=== PATIENT | female | born 2000 ===

== ENCOUNTER 2022-05-22 21:00 | Emergency (ER) | payer OTHER ==
[2022-05-22 21:33] LABS: BILIRUBIN,URINE NEGATIVE (NEGATIVE); CLARITY,URINE CLEAR; COLOR,URINE YELLOW; GLUCOSE, URINE (UA) NEGATIVE (NEGATIVE); KETONES,URINE NEGATIVE (NEGATIVE); LEUKOCYTE ESTERASE ,URINE NEGATIVE (NEGATIVE); NITRITE,URINE NEGATIVE (NEGATIVE); PROTEIN,URINE NEGATIVE (NEGATIVE)
[2022-05-22 21:42] LABS: BASOPHILS % (AUTO) 0 % (0-10); EOSINOPHILS # (AUTO) 0.2 10^3/uL (0.0-0.3); EOSINOPHILS % (AUTO) 2 % (0-10); HEMATOCRIT 40 % (35-52); HEMOGLOBIN 13.2 g/dL (11.5-16.0); LYMPHOCYTES # (AUTO) 2.6 10^3/uL (1.0-4.0); LYMPHOCYTES % (AUTO) 37 % (12-44); MEAN CORPUSCULAR HEMOGLOBIN 29 pg (25-34); MEAN CORPUSCULAR HGB CONC 33 g/dL (32-36); MEAN CORPUSCULAR VOLUME 86 fL (80-99); MEAN PLATELET VOLUME 10.7 fL (9.0-12.2); MONOCYTES # (AUTO) 0.4 10^3/uL (0.0-1.0); MONOCYTES % (AUTO) 6 % (0-12); NEUTROPHILS # (AUTO) 3.7 10^3/uL (1.8-7.8); NEUTROPHILS % (AUTO) 54 % (42-75); PLATELET COUNT 220 10^3/uL (130-400); WHITE BLOOD COUNT 6.8 10^3/uL (4.3-11.0)
[2022-05-22 21:43] LABS: WBC,URINE 0-2 /HPF
[2022-05-22 21:44] LABS: BACTERIA,URINE LARGE /HPF
[2022-05-22 21:45] LABS: ALBUMIN 4.5 GM/DL (3.2-4.5)
[2022-05-22] MEDS ORDERED: NS IV 1000 ML 1,000 ML IV SCH (21:45)
[2022-05-22] MEDS ORDERED: PANTOPRAZOLE 40 MG (PROTONIX) VIAL IV ONE (21:45)
[2022-05-22] MEDS ORDERED: ONDANSETRON 4 MG/2 ML (SDV) Z0FRAN IVP ONE (21:45)
[2022-05-22 21:46] LABS: POTASSIUM 3.4 MMOL/L (3.6-5.0)
[2022-05-22 21:47] LABS: CALCIUM 9.3 MG/DL (8.5-10.1)
[2022-05-22 21:48] LABS: TOTAL PROTEIN 7.8 GM/DL (6.4-8.2)
[2022-05-22 21:50] LABS: BILIRUBIN,TOTAL 0.3 MG/DL (0.1-1.0)
[2022-05-22 21:51] LABS: CREATININE SERUM 0.71 MG/DL (0.60-1.30)
[2022-05-22] MEDS ORDERED: NS 100 ML (IVPB) BAG IV ONE (22:15)
[2022-05-22] MEDS ORDERED: IOHEXOL 350 MG/ML 100 ML (OMNIPAQUE 350) VIAL IV ONE (22:15)
[2022-05-22] MEDS ORDERED: CATHETER FLUSH 10 ML SYR IV PRN (22:15)
--- NOTE | 2022-05-22 23:06 | ED Abdominal Pain ---
General Chief Complaint: Abdominal/GI Problems Stated Complaint: UPPER ABD PAIN Nursing Triage Note: PT ARRIVAL TO ER VIA PRIVATE VEHICLE FROM HOME WITH COMPLAINT OF ABDOMINAL PAIN X2 HOURS. PT HAS VOMITED ONCE. PAIN IS IN RUQ. PT DENIES ANY SURGERY HISTORY. PAIN IS A PRESSURE LIKE PAIN AT A 9/10. 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 Source of Information: Patient Exam Limitations: Language Barrier History of Present Illness Date Seen by Provider: May 22, 2022 Time Seen by Provider: 21:17 Initial Comments 21-year-old female presents with mid upper abdominal pain that radiates to the RUQ starting 2 hours prior to arrival, after eating. States the pain feels like a band pulling on her. Reports 1 episode of vomiting. Denies fever/chills, chest pain, shortness of air, diarrhea, constipation, dysuria, vaginal bleeding/discharge. States she had a normal bowel movement today. She denies any past medical/surgical history. Does not take any medications regularly. Timing/Duration: 1-3 Hours Allergies and Home Medications Allergies Coded Allergies: No Known Drug Allergies (Unverified , 05/22/22) Patient Home Medication List Home Medication List Reviewed: Yes Dicyclomine HCl (Dicyclomine HCl) 20 Mg Tablet, 20 MG PO ACHS Prescribed by: Milagros Seo on 05/22/22 2339 Ketorolac Tromethamine (Ketorolac Tromethamine) 10 Mg Tablet, 10 MG PO QID Prescribed by: Milagros Seo on 05/22/22 2339 Ondansetron (Ondansetron Odt) 4 Mg Tab.rapdis, 4 MG SL Q4H PRN for NAUSEA/VOMITING Prescribed by: Milagros Seo on 05/22/22 2339 Review of Systems Review of Systems Constitutional: see HPI Past Jjqahbz-Ysoiys-Tjbjwr Hx Patient Social History Tobacco Use?: No Use of E-Cig and/or Vaping dev: No Substance use?: No Alcohol Use?: No Pt feels they are or have been: No Immunizations Up To Date Influenza Vaccine Up-to-Date: No; Not Current Second COVID19 Vaccination Mansoor: UNKNOWN COVID19 Vaccine Manager Systems: MODERNA Physical Exam Vital Signs Vital Signs - First Documented 05/22/22 21:12 Temp 36.9 Pulse 81 Resp 16 B/P (MAP) 117/54 (75) Pulse Ox 99 O2 Delivery Room Air Capillary Refill : Less Than 3 Seconds Height/Weight/BMI Height: '" Weight: lbs. oz. kg; BMI Method: General Appearance: WD/WN, mild distress Neck: supple, normal inspection Respiratory: lungs clear, normal breath sounds, no respiratory distress, no accessory muscle use Cardiovascular: regular rate, rhythm, no edema, no gallop, no JVD, no murmur Gastrointestinal: normal bowel sounds, soft, no organomegaly, no pulsatile mass, tenderness (RUQ, Epigastric) Extremities: normal range of motion, normal inspection Neurologic/Psychiatric: alert, normal mood/affect, oriented x 3 Skin: normal color, warm/dry Progress/Results/Core Measures Results/Orders Lab Results Laboratory Tests Test 05/22/22 21:17 05/22/22 21:20 Range/Units White Blood Count 6.8 4.3-11.0 10^3/uL Red Blood Count 4.62 3.80-5.11 10^6/uL Hemoglobin 13.2 11.5-16.0 g/dL Hematocrit 40 35-52 % Mean Corpuscular Volume 86 80-99 fL Mean Corpuscular Hemoglobin 29 25-34 pg Mean Corpuscular Hemoglobin Concent 33 32-36 g/dL Red Cell Distribution Width 12.5 10.0-14.5 % Platelet Count 220 130-400 10^3/uL Mean Platelet Volume 10.7 9.0-12.2 fL Immature Granulocyte % (Auto) 0 % Neutrophils (%) (Auto) 54 42-75 % Lymphocytes (%) (Auto) 37 12-44 % Monocytes (%) (Auto) 6 0-12 % Eosinophils (%) (Auto) 2 0-10 % Basophils (%) (Auto) 0 0-10 % Neutrophils # (Auto) 3.7 1.8-7.8 10^3/uL Lymphocytes # (Auto) 2.6 1.0-4.0 10^3/uL Monocytes # (Auto) 0.4 0.0-1.0 10^3/uL Eosinophils # (Auto) 0.2 0.0-0.3 10^3/uL Basophils # (Auto) 0.0 0.0-0.1 10^3/uL Immature Granulocyte # (Auto) 0.0 0.0-0.1 10^3/uL Sodium Level 141 135-145 MMOL/L Potassium Level 3.4 L 3.6-5.0 MMOL/L Chloride Level 108 H 98-107 MMOL/L Carbon Dioxide Level 22 21-32 MMOL/L Anion Gap 11 5-14 MMOL/L Blood Urea Nitrogen 11 7-18 MG/DL Creatinine 0.71 0.60-1.30 MG/DL Estimat Glomerular Filtration Rate 122 BUN/Creatinine Ratio 15 Glucose Level 89 70-105 MG/DL Calcium Level 9.3 8.5-10.1 MG/DL Corrected Calcium 8.9 8.5-10.1 MG/DL Total Bilirubin 0.3 0.1-1.0 MG/DL Aspartate Amino Transf (AST/SGOT) 18 5-34 U/L Alanine Aminotransferase (ALT/SGPT) 18 0-55 U/L Alkaline Phosphatase 61 40-136 U/L Total Protein 7.8 6.4-8.2 GM/DL Albumin 4.5 3.2-4.5 GM/DL Amylase Level 111 25-125 U/L Lipase 33 8-78 U/L Urine Color YELLOW Urine Clarity CLEAR Urine pH 7.0 5-9 Urine Specific [place] 1.025 H 1.016-1.022 Urine Protein NEGATIVE NEGATIVE Urine Glucose (UA) NEGATIVE NEGATIVE Urine Ketones NEGATIVE NEGATIVE Urine Nitrite NEGATIVE NEGATIVE Urine Bilirubin NEGATIVE NEGATIVE Urine Urobilinogen 0.2 < = 1.0 MG/DL Urine Leukocyte Esterase NEGATIVE NEGATIVE Urine RBC (Auto) 3+ H NEGATIVE Urine RBC 5-10 H /HPF Urine WBC 0-2 /HPF Urine Squamous Epithelial Cells 5-10 /HPF Urine Crystals NONE /LPF Urine Bacteria LARGE H /HPF Urine Casts NONE /LPF Urine Mucus SMALL H /LPF Urine Culture Indicated YES My Orders Orders - MILAGROS SEO APRN Urinalysis (05/22/22 21:17) Ed Iv/Invasive Line Start (05/22/22 21:33) Ns Iv 1000 Ml (Sodium Chloride 0.9%) (05/22/22 21:45) Ondansetron Injection (Zofran Injectio (05/22/22 21:45) Comprehensive Metabolic Panel (05/22/22 21:33) Lipase (05/22/22 21:33) Amylase (05/22/22 21:33) Cbc With Automated Diff (05/22/22 21:33) Ct Abdomen/Pelvis W (05/22/22 21:33) Pantoprazole Injection (Protonix Injecti (05/22/22 21:45) Urine Culture (05/22/22 21:20) Urine Bedside (05/22/22 21:50) Iohexol Injection (Omnipaque 350 Mg/Ml 1 (05/22/22 22:15) Sodium Chloride Flush (Catheter Flush Sy (05/22/22 22:15) Ns (Ivpb) (Sodium Chloride 0.9% Ivpb Bag (05/22/22 22:15) Dicyclomine Injection (Bentyl Injection) (05/22/22 23:30) Ketorolac Injection (Toradol Injection) (05/22/22 23:45) Medications Given in ED Current Medications Medications Dose Ordered Sig/Maegan Route Start Time Stop Time Status Last Admin Dose Admin Dicyclomine HCl 20 mg ONCE ONCE IM 05/22/22 23:30 05/22/22 23:31 DC 05/22/22 23:45 20 MG Ketorolac Tromethamine 15 mg ONCE ONCE IVP 05/22/22 23:45 05/22/22 23:46 DC 05/22/22 23:44 15 MG Vital Signs/I&O 05/22/22 05/22/22 21:12 23:45 Temp 36.9 36.9 Pulse 81 77 Resp 16 16 B/P (MAP) 117/54 (75) 102/66 Pulse Ox 99 100 O2 Delivery Room Air Room Air 05/23/22 00:00 Intake Total 1000 ml Balance 1000 ml Blood Pressure Mean: 75 Progress Progress Note #1: Time: 21:40 Progress Note Patient seen and evaluated, sitting on bed, mild distress. Based on exam and symptoms, differential diagnosis includes but is not limited to GERD, cholecystitis, pancreatitis, gastroenteritis, peptic ulcer disease. Work-up initiated, CBC, CMP, amylase, lipase, CT abdomen pelvis. IV fluids, Zofran, Protonix ordered. Progress Note #2: Time: 22:44 Progress Note Labs reviewed. CBC grossly normal. CMP shows slightly decreased potassium at 3.4, chloride at 108. UA negative for infection, positive for red blood cells and bacteria. Progress Note #3: Time: 23:[address] reviewed. Cholelithiasis, minimal gallbladder wall thickening. Recommend gallbladder ultrasound. Will order outpatient gallbladder ultrasound. Discussed discharge with patient. Will send home with pain medication and nausea medication. Return precautions provided. Departure Impression Primary Impression: Cholelithiases Disposition: 01 HOME, SELF-CARE Condition: Stable Departure-Patient Inst. Decision time for Depature: 23:33 Referrals: NO,LOCAL PHYSICIAN (PCP/Family) Primary Care Physician Patient Instructions: Gallstones (DC) Add. Discharge Instructions: Take medications as prescribed. Take Bentyl prior to eating and at bedtime. Take Toradol as needed for pain with food. Take Zofran as needed for nausea. Return for any fevers, uncontrolled pain, uncontrolled vomiting, or any other new, concerning, or worsening symptoms. Call to schedule your ultrasound. You will follow-up with the surgeon if they are concerned that you need your gallbladder removed. Follow-up with a primary care provider, you may go to the [facility] if you do not have a primary care provider. [place] [address] [place] [address] All discharge instructions reviewed with patient and/or family. Voiced understanding. Scripts Ondansetron (Ondansetron Odt) 4 Mg Tab.rapdis 4 MG SL Q4H PRN for NAUSEA/VOMITING, #14 TAB Prov: MILAGROS SEO APRN 05/22/22 Dicyclomine HCl (Dicyclomine HCl) 20 Mg Tablet 20 MG PO ACHS, #28 TAB Prov: MILAGROS SEO APRN 05/22/22 Ketorolac Tromethamine (Ketorolac Tromethamine) 10 Mg Tablet 10 MG PO QID, #20 TAB Prov: MILAGROS SEO ANIMAL STUNNER 05/22/22 MILAGROS SEO APRN May 22, 2022 23:06
[2022-05-22] MEDS ORDERED: DICYCLOMINE 10 MG/ML (BENTYL) 2 ML AMP IM ONE (23:30)
[2022-05-22] MEDS ORDERED: DICY20TA PO (23:39)
[2022-05-22] MEDS ORDERED: KETO10TA PO (23:39)
[2022-05-22] MEDS ORDERED: ONDA4TAB11 SL (23:39)
[2022-05-22 23:45] VITALS: BP 102/66
[2022-05-22] MEDS ORDERED: KETOROLAC 15 MG/ML VIAL IVP ONE (23:45)
--- NOTE | 2022-05-23 07:02 | Diagnostic Imaging Report ---
PROCEDURE: CT abdomen and pelvis with contrast. TECHNIQUE: Multiple contiguous axial images were obtained through the abdomen and pelvis after administration of intravenous contrast. Auto Exposure Controls were utilized during the CT exam to meet ALARA standards for radiation dose reduction. All CT scans use one or more of the following dose optimizing techniques: automated exposure control, MA and/or KvP adjustment based on patient size and exam type or iterative reconstruction. INDICATION: Right upper quadrant abdominal pain and emesis. There is increased density in the inferior aspect of the gallbladder fundus which may be due to sludge or stones. There is no associated gallbladder wall thickening. No focal hepatic, pancreatic, adrenal gland or splenic abnormalities identified. Kidneys are also unremarkable. Incidental note is made of an approximately 1.1 cm cyst along the posterior capsule of the spleen in the left upper quadrant. There is no evidence of free fluid or organized fluid collection in the abdomen or pelvis. Urinary bladder is largely decompressed but otherwise unremarkable. IMPRESSION: Sludge or stones in the gallbladder lumen. Correlation with symptoms of cholecystitis would be useful. There is no secondary sign of gallbladder inflammation by CT imaging and no other acute abnormality seen in the abdomen or pelvis. Dictated by: Dictated on workstation # [id number]
== END 2022-05-22 23:57 | disposition home or self-care (01) ==
LOC: ER 21:05
DX: K80.20 Calculus of gallbladder without cholecystitis without obstruction (principal); E87.6 Hypokalemia
CPT/HCPCS: 36415; 74177; 80053; 81000; 82150; 83690; 84703; 85025; 87088

== ENCOUNTER 2022-05-24 02:44 | Emergency (ER) | payer OTHER ==
[~2022-05-24] VITALS: Ht 163 cm; Wt 64.0 kg
[~2022-05-24 02:44] MED LIST: DICY20TA PO; KETO10TA PO; ONDA4TAB11 SL
[2022-05-24 03:28] LABS: BASOPHILS % (AUTO) 1 % (0-10); EOSINOPHILS # (AUTO) 0.1 10^3/uL (0.0-0.3); EOSINOPHILS % (AUTO) 2 % (0-10); HEMATOCRIT 36 % (35-52); LYMPHOCYTES # (AUTO) 2.1 10^3/uL (1.0-4.0); LYMPHOCYTES % (AUTO) 36 % (12-44); MEAN CORPUSCULAR HEMOGLOBIN 28 pg (25-34); MEAN CORPUSCULAR HGB CONC 33 g/dL (32-36); MEAN CORPUSCULAR VOLUME 86 fL (80-99); MEAN PLATELET VOLUME 10.6 fL (9.0-12.2); MONOCYTES # (AUTO) 0.4 10^3/uL (0.0-1.0); MONOCYTES % (AUTO) 6 % (0-12); NEUTROPHILS # (AUTO) 3.2 10^3/uL (1.8-7.8); NEUTROPHILS % (AUTO) 55 % (42-75); PLATELET COUNT 189 10^3/uL (130-400); WHITE BLOOD COUNT 5.9 10^3/uL (4.3-11.0)
--- NOTE | 2022-05-24 03:29 | ED Abdominal Pain ---
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) Exam Limitations: Language Barrier History of Present Illness Date Seen by Provider: May 24, 2022 Time Seen by Provider: 03:05 Initial Comments PT ARRIVES VIA POV C/O EPIGASTRIC AND RIGHT UPPER QUADRANT PAIN PAIN BEGAN AROUND 1900 ON 05/22/22 AND HAS BEEN GETTING WORSE SHE WAS SEEN HERE 05/22/22 AND DX WITH GALLBLADDER DISEASE, AND OUTPATIENT ULTRASOUND WAS ORDERED, AND SHE WAS SENT HOME WITH PRESCRIPTIONS FOR DICYCLOMINE, ZOFRAN AND TORADOL AND ADVISED TO FOLLOW UP WITH [facility] PT DID NOT DO ANY OF THOSE THINGS SHE HAS NOT TAKEN ANYTHING FOR HER SYMPTOMS SHE HAD NAUSEA AND VOMITED ON 05/22/22 BUT NONE SINCE, AND NO NAUSEA NOW NO DIARRHEA NO FEVER NO URINARY SYMPTOMS LMP--05/22/22 NO CONTROL. PT IS AB 0--CHILD IS 5 YEARS OLD NO CHRONIC MEDICAL PROBLEMS NO PRIOR SURGERIES PCP: NONE Allergies and Home Medications Allergies Coded Allergies: No Known Drug Allergies (Unverified , 05/22/22) Patient Home Medication List Home Medication List Reviewed: Yes Dicyclomine HCl (Dicyclomine HCl) 20 Mg Tablet, 20 MG PO ACHS Prescribed by: Milagros Seo on 05/22/22 2339 Ketorolac Tromethamine (Ketorolac Tromethamine) 10 Mg Tablet, 10 MG PO QID Prescribed by: Milagros Seo on 05/22/22 2339 Nitrofurantoin Monohyd/M-Cryst (Macrobid 100 mg Capsule) 100 Mg Capsule, 1 TAB PO BID Prescribed by: CARL DEMPSEY on 05/24/22 0445 Ondansetron (Ondansetron Odt) 4 Mg Tab.rapdis, 4 MG SL Q4H PRN for NAUSEA/VOMITING Prescribed by: Milagros Seo on 05/22/22 2339 Review of Systems Review of Systems Constitutional: no symptoms reported Respiratory: No Symptoms Reported Cardiovascular: No Symptoms Reported Gastrointestinal: See HPI, Abdominal Pain; Denies Constipated, Denies Diarrhea Genitourinary: No Symptoms Reported Musculoskeletal: no symptoms reported Skin: no symptoms reported Psychiatric/Neurological: No Symptoms Reported Endocrine: No Symptoms Reported Hematologic/Lymphatic: No Symptoms Reported Past Hrfciga-Srgegv-Ssuhtf Hx Patient Social History Tobacco Use?: No Substance use?: No Alcohol Use?: No Immunizations Up To Date Second COVID19 Vaccination Mansoor: UNKNOWN Past Medical History Surgeries: No Respiratory: No Cardiac: No Neurological: No : No Last Menstrual Period: May 22, 2022 Genitourinary: No Gastrointestinal: Yes (GB DISEASE DX 05/22/22) Gall Bladder Disease Musculoskeletal: No Endocrine: No HEENT: No Cancer: No Psychosocial: No Integumentary: No Blood Disorders: No Physical Exam Vital Signs Vital Signs - First Documented 05/24/22 03:00 Temp 36.8 Pulse 98 Resp 18 B/P (MAP) 127/66 (86) Pulse Ox 100 O2 Delivery Room Air Capillary Refill : Height/Weight/BMI Height: '" Weight: lbs. oz. kg; BMI Method: General Appearance: WD/WN, no apparent distress HEENT: No scleral icterus (R), No scleral icterus (L) Neck: normal inspection Respiratory: normal breath sounds, no respiratory distress, no accessory muscle use Cardiovascular: regular rate, rhythm, no murmur Gastrointestinal: normal bowel sounds, soft, tenderness (EPIGASTRIC AND RUQ TENDERNESS. 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, no motor/sensory deficits, alert, normal mood/affect, oriented x 3 Skin: normal color (PT IS ), warm/dry; No rash; tattoos/piercings Progress/Results/Core Measures Results/Orders Lab Results Laboratory Tests Test 05/24/22 03:20 05/24/22 04:20 Range/Units White Blood Count 5.9 4.3-11.0 10^3/uL Red Blood Count 4.23 3.80-5.11 10^6/uL Hemoglobin 12.0 11.5-16.0 g/dL Hematocrit 36 35-52 % Mean Corpuscular Volume 86 80-99 fL Mean Corpuscular Hemoglobin 28 25-34 pg Mean Corpuscular Hemoglobin Concent 33 32-36 g/dL Red Cell Distribution Width 12.6 10.0-14.5 % Platelet Count 189 130-400 10^3/uL Mean Platelet Volume 10.6 9.0-12.2 fL Immature Granulocyte % (Auto) 0 % Neutrophils (%) (Auto) 55 42-75 % Lymphocytes (%) (Auto) 36 12-44 % Monocytes (%) (Auto) 6 0-12 % Eosinophils (%) (Auto) 2 0-10 % Basophils (%) (Auto) 1 0-10 % Neutrophils # (Auto) 3.2 1.8-7.8 10^3/uL Lymphocytes # (Auto) 2.1 1.0-4.0 10^3/uL Monocytes # (Auto) 0.4 0.0-1.0 10^3/uL Eosinophils # (Auto) 0.1 0.0-0.3 10^3/uL Basophils # (Auto) 0.0 0.0-0.1 10^3/uL Immature Granulocyte # (Auto) 0.0 0.0-0.1 10^3/uL Sodium Level 142 135-145 MMOL/L Potassium Level 3.4 L 3.6-5.0 MMOL/L Chloride Level 110 H 98-107 MMOL/L Carbon Dioxide Level 22 21-32 MMOL/L Anion Gap 10 5-14 MMOL/L Blood Urea Nitrogen 11 7-18 MG/DL Creatinine 0.76 0.60-1.30 MG/DL Estimat Glomerular Filtration Rate 113 BUN/Creatinine Ratio 14 Glucose Level 89 70-105 MG/DL Calcium Level 8.5 8.5-10.1 MG/DL Corrected Calcium 8.7 8.5-10.1 MG/DL Total Bilirubin 0.3 0.1-1.0 MG/DL Aspartate Amino Transf (AST/SGOT) 15 5-34 U/L Alanine Aminotransferase (ALT/SGPT) 16 0-55 U/L Alkaline Phosphatase 48 40-136 U/L Total Protein 6.5 6.4-8.2 GM/DL Albumin 3.8 3.2-4.5 GM/DL Amylase Level 83 25-125 U/L Lipase 18 8-78 U/L Serum Test, Qualitative NEGATIVE NEGATIVE Urine Color YELLOW Urine Clarity SL CLOUDY Urine pH 6.0 5-9 Urine Specific [place] >=1.030 1.016-1.022 Urine Protein NEGATIVE NEGATIVE Urine Glucose (UA) NEGATIVE NEGATIVE Urine Ketones NEGATIVE NEGATIVE Urine Nitrite NEGATIVE NEGATIVE Urine Bilirubin NEGATIVE NEGATIVE Urine Urobilinogen 0.2 < = 1.0 MG/DL Urine Leukocyte Esterase TRACE H NEGATIVE Urine RBC (Auto) 3+ H NEGATIVE Urine RBC 25-50 H /HPF Urine WBC 5-10 H /HPF Urine Squamous Epithelial Cells 0-2 /HPF Urine Crystals NONE /LPF Urine Bacteria FEW H /HPF Urine Casts NONE /LPF Urine Mucus SMALL H /LPF Urine Culture Indicated YES My Orders Orders - CARL DEMPSEY DO Ed Iv/Invasive Line Start (05/24/22 03:05) Amylase (05/24/22 03:05) Cbc With Automated Diff (05/24/22 03:05) Comprehensive Metabolic Panel (05/24/22 03:05) Hcg,Qualitative Serum (05/24/22 03:05) Lipase (05/24/22 03:05) Ua Culture If Indicated (05/24/22 03:05) Ketorolac Injection (Toradol Injection) (05/24/22 04:00) Pantoprazole Injection (Protonix Injecti (05/24/22 04:00) Dicyclomine Injection (Bentyl Injection) (05/24/22 04:00) Urine Culture (05/24/22 04:20) Medications Given in ED Current Medications Medications Dose Ordered Sig/Maegan Route Start Time Stop Time Status Last Admin Dose Admin Dicyclomine HCl 20 mg ONCE ONCE IM 05/24/22 04:00 05/24/22 04:01 DC 05/24/22 04:14 20 MG Ketorolac Tromethamine 30 mg ONCE ONCE IVP 05/24/22 04:00 05/24/22 04:01 DC 05/24/22 04:14 30 MG Pantoprazole 40 mg ONCE ONCE IV 05/24/22 04:00 05/24/22 04:01 DC 05/24/22 04:13 40 MG Vital Signs/I&O 05/24/22 03:00 Temp 36.8 Pulse 98 Resp 18 B/P (MAP) 127/66 (86) Pulse Ox 100 O2 Delivery Room Air Progress Progress Note : Progress Note GIVEN: -IV FLUIDS -TORADOL -DICYCLOMINE -PROTONIX UNEVENTFUL ER STAY SYMPTOMS IMPROVED AT DISMISSAL REVIEWED PREVIOUS ER RECORD--PT'S ONLY VISIT HERE. ALL CONVERSATIONS WERE THROUGH VIDEO-SEGREGATOR REVIEWED ALL TEST RESULTS, ANTICIPATED COURSE, IMPORTANCE OF FILLING PRESCRIPTIONS FOR MEDICATIONS, DIET, NEED FOR OUTPATIENT ULTRASOUND, NEED FOR FOLLOW UP WITH BOTH DR. HAGER AND [facility]. Departure Impression Primary Impression: Gallbladder disease Additional Impressions: UTI (urinary tract infection) Cholelithiases Disposition: HOME, SELF-CARE Condition: Improved Departure-Patient Inst. Decision time for Depature: 04:40 Referrals: DAYNE HAGER,LOCAL PHYSICIAN (PCP) Primary Care Physician [facility] Patient Instructions: Gallstones ED, Gallbladder Diet, Urinary Tract Infection, Adult ED Add. Discharge Instructions: CLEAR LIQUIDS--WATER, BROTH, JELLO, GATORADE WHEN YOUR PAIN IS BETTER, ADD BRATS DIET TO CLEAR LIQUIDS--BANANAS, RICE, APPLESAUCE, TOAST, SALTINES CALL OUTPATIENT SCHEDULING TODAY TO SCHEDULE ABDOMINAL ULTRASOUND TO FURTHER EVALUATE YOUR GALLBLADDER GET YOUR PRESCRIPTIONS FILLED AT THE PHARMACY AND TAKE INSTRUCTED CALL TODAY TO SCHEDULE AN APPOINTMENT WITH DR. HAGER, SURGEON CALL TODAY TO SCHEDULE AN APPOINTMENT WITH [facility] TO ESTABLISH CARE AND FOR FOLLOW UP OF THIS PROBLEM AND URINARY TRACT INFECTION. Scripts Nitrofurantoin Monohyd/M-Cryst (Macrobid 100 mg Capsule) 100 Mg Capsule 1 TAB PO BID, #20 CAP Prov: CARL DEMPSEY DO 05/24/22 CARL DEMPSEY DO May 24, 2022 03:29
[2022-05-24 03:39] LABS: ALBUMIN 3.8 GM/DL (3.2-4.5); POTASSIUM 3.4 MMOL/L (3.6-5.0)
[2022-05-24 03:40] LABS: CALCIUM 8.5 MG/DL (8.5-10.1)
[2022-05-24 03:41] LABS: TOTAL PROTEIN 6.5 GM/DL (6.4-8.2)
[2022-05-24 03:43] LABS: BILIRUBIN,TOTAL 0.3 MG/DL (0.1-1.0)
[2022-05-24 03:45] LABS: CREATININE SERUM 0.76 MG/DL (0.60-1.30)
[2022-05-24] MEDS ORDERED: PANTOPRAZOLE 40 MG (PROTONIX) VIAL IV ONE (04:00)
[2022-05-24] MEDS ORDERED: KETOROLAC 30 MG/ML VIAL IVP ONE (04:00)
[2022-05-24] MEDS ORDERED: DICYCLOMINE 10 MG/ML (BENTYL) 2 ML AMP IM ONE (04:00)
[2022-05-24 04:29] LABS: BILIRUBIN,URINE NEGATIVE (NEGATIVE); CLARITY,URINE SL CLOUDY; COLOR,URINE YELLOW; GLUCOSE, URINE (UA) NEGATIVE (NEGATIVE); KETONES,URINE NEGATIVE (NEGATIVE); LEUKOCYTE ESTERASE ,URINE TRACE (NEGATIVE); NITRITE,URINE NEGATIVE (NEGATIVE); PROTEIN,URINE NEGATIVE (NEGATIVE)
[2022-05-24 04:38] LABS: BACTERIA,URINE FEW /HPF; RBC,URINE 25-50 /HPF; SQUAMOUS EPITHELIAL CELL,UR 0-2 /HPF
[2022-05-24] MEDS ORDERED: NITR-65 PO (04:45)
[2022-05-24 05:05] VITALS: BP 115/74
== END 2022-05-24 05:05 | disposition home or self-care (01) ==
LOC: EDUNIT# 02:44 → ER 02:46
DX: K80.20 Calculus of gallbladder without cholecystitis without obstruction (principal); N39.0 Urinary tract infection, site not specified
CPT/HCPCS: 36415; 80053; 81000; 82150; 83690; 84703; 85025; 87088; 99284

== ENCOUNTER 2022-05-24 22:43 | Emergency (ER) | payer OTHER ==
[~2022-05-24] VITALS: Ht 163 cm; Wt 64.0 kg
[~2022-05-24 22:43] MED LIST changes: +NITR-65 PO
--- NOTE | 2022-05-25 02:13 | ED Abdominal Pain ---
General Chief Complaint: Abdominal/GI Problems Stated Complaint: ABDOMINAL PAIN Nursing Triage Note: PT TO ED FOR C/O ABD PAIN. REPORTS HAS AN APPT W/ A SURGEON NEXT MONDAY. REPORTS HAS BEEN AVOIDING CERTAIN FOODS BUT DENIES IMPROVEMENT OF PAIN. REPORTS NAUSEA, DENIES V/D AT THIS TIME Source of Information: Patient, Photography Coordinator, Old Records Exam Limitations: Language Barrier History of Present Illness Date Seen by Provider: May 24, 2022 Time Seen by Provider: 22:52 Initial Comments This 21-year-old young lady presents to the emergency room for the third time with complaints of right upper quadrant pain and vomiting. She has been worked up twice in the last few days and was found to have cholelithiasis on CT scan. She was also diagnosed with urinary tract infection. She has not filled any of the medications prescribed. She did schedule an outpatient ultrasound but it is scheduled for a week from now. She complains of persistent nausea and pain. Pain is worse with eating. She has not had anything to eat or drink since 2099. She is presently nauseated as well as in pain. She states her pain is worse now than it was during the prior 2 visits. Her last visit was just early this morning. She has not no local primary care provider. She does not speak any Vietnamese. Allergies and Home Medications Allergies Coded Allergies: No Known Drug Allergies (Unverified , 05/22/22) Patient Home Medication List Home Medication List Reviewed: Yes Dicyclomine HCl (Dicyclomine HCl) 20 Mg Tablet, 20 MG PO ACHS Prescribed by: Milagros Seo on 05/22/22 152 Ketorolac Tromethamine (Ketorolac Tromethamine) 10 Mg Tablet, 10 MG PO QID Prescribed by: Milagros Seo on 05/22/22 892 Nitrofurantoin Monohyd/M-Cryst (Macrobid 100 mg Capsule) 100 Mg Capsule, 1 TAB PO BID Prescribed by: CARL DEMPSEY on 05/24/22 2685 Ondansetron (Ondansetron Odt) 4 Mg Tab.rapdis, 4 MG SL Q4H PRN for NAUSEA/VOMITING Prescribed by: Milagros Seo on 05/22/22 229 Review of Systems Review of Systems Constitutional: no symptoms reported EENTM: No Symptoms Reported Respiratory: No Symptoms Reported Cardiovascular: No Symptoms Reported Gastrointestinal: See HPI Genitourinary: No Symptoms Reported Musculoskeletal: no symptoms reported Skin: no symptoms reported Psychiatric/Neurological: No Symptoms Reported Endocrine: No Symptoms Reported Past Bahlktu-Kdnwpo-Crceki Hx Patient Social History Tobacco Use?: No Use of E-Cig and/or Vaping dev: No Substance use?: No Alcohol Use?: No Immunizations Up To Date First/Initial COVID19 Vaccinat: 2020 Second COVID19 Vaccination Mansoor: 2020 Third COVID19 Vaccination Date: NONE Past Medical History Surgeries: No Respiratory: No Cardiac: No Neurological: No Genitourinary: No Gastrointestinal: Yes (GB DISEASE DX 05/22/22) Gall Bladder Disease Musculoskeletal: No Endocrine: No HEENT: No Cancer: No Psychosocial: No Integumentary: No Blood Disorders: No Physical Exam Vital Signs Vital Signs - First Documented 05/24/22 22:54 Temp 36.8 Pulse 95 Resp 20 B/P (MAP) 106/74 (85) Pulse Ox 99 O2 Delivery Room Air Capillary Refill : Less Than 3 Seconds Height/Weight/BMI Height: '" Weight: lbs. oz. kg; 24.00 BMI Method: General Appearance: WD/WN, no apparent distress HEENT: PERRL/EOMI, normal ENT inspection Neck: normal inspection Respiratory: lungs clear, normal breath sounds, no respiratory distress Cardiovascular: regular rate, rhythm, no edema, no murmur Gastrointestinal: normal bowel sounds, soft; No distended; tenderness (Right upper quadrant just beneath the costal margin) Extremities: normal inspection, no pedal edema Neurologic/Psychiatric: vessel operator II-XII nml as tested, no motor/sensory deficits, alert, normal mood/affect, oriented x 3 Skin: normal color, warm/dry Progress/Results/Core Measures Results/Orders My Orders Orders - CAS GAN MD Ketorolac Injection (Toradol Injection) (05/25/22 02:15) Ondansetron Oral Dissolve Tab (Zofran (05/25/22 02:15) Medications Given in ED Current Medications Medications Dose Ordered Sig/Maegan Route Start Time Stop Time Status Last Admin Dose Admin Ketorolac Tromethamine 30 mg ONCE ONCE IM 05/25/22 02:15 05/25/22 02:16 DC 05/25/22 02:15 30 MG Ondansetron HCl 8 mg ONCE ONCE SL 05/25/22 02:15 05/25/22 02:16 DC 05/25/22 02:13 8 MG Vital Signs/I&O 05/24/22 05/25/22 22:54 02:39 Temp 36.8 36.8 Pulse 95 87 Resp 20 16 B/P (MAP) 106/74 (85) 136/75 Pulse Ox 99 99 O2 Delivery Room Air Room Air Blood Pressure Mean: 85 Progress Progress Note : Progress Note Chart was reviewed. A thorough history was obtained with coroner transport technician's assistance. I offered to hold the patient in the emergency room until ultrasound services were available. Alternatively, I offered to write a new order for her to have the ultrasound performed as an outpatient later this morning. She opted for the latter. To help with her symptoms in the meantime, she was given sublingual Zofran and IM Toradol. Vital signs were unremarkable and she was stable. Departure Impression Primary Impression: Cholelithiases Qualified Codes: K80.20 - Calculus of gallbladder without cholecystitis without obstruction Additional Impression: UTI (urinary tract infection) Qualified Codes: N39.0 - Urinary tract infection, site not specified Disposition: 01 HOME, SELF-CARE Condition: Improved Departure-Patient Inst. Decision time for Depature: 02:09 Referrals: NO,LOCAL PHYSICIAN (PCP/Family) Primary Care Physician Patient Instructions: Gallbladder Diet, Gallstones ED Add. Discharge Instructions: Return between 7:30 and 8:00 this morning for a gallbladder ultrasound. Do not eat or drink between now and the ultrasound. Stay in the ultrasound department until you receive instructions from the ER physician. You need to fill the medications prescribed to you during the other ER visits and start them. Return to the ER if you have worsening symptoms in the meantime. All discharge instructions reviewed with patient and/or family. Voiced understanding. CAS GAN MD May 25, 2022 02:13
[2022-05-25] MEDS ORDERED: ONDANSETRON 4 MG (ZOFRAN) ORAL DISSOLVE TAB SL ONE (02:15)
[2022-05-25] MEDS ORDERED: KETOROLAC 30 MG/ML VIAL IM ONE (02:15)
[2022-05-25 02:39] VITALS: BP 136/75
== END 2022-05-25 02:39 | disposition home or self-care (01) ==
LOC: EDUNIT# 22:43 → ER 22:46
DX: K80.20 Calculus of gallbladder without cholecystitis without obstruction (principal); N39.0 Urinary tract infection, site not specified
CPT/HCPCS: 99284

== ENCOUNTER → 2022-05-25 | Outpatient (CLI) | payer OTHER ==
--- NOTE | 2022-05-25 09:33 | Diagnostic Imaging Report ---
PROCEDURE: US Gallbladder. INDICATION: EPIGASTRIC PAIN. TECHNIQUE: Multiple grayscale sonographic images were obtained of the right upper quadrant of the abdomen. CORRELATION STUDY: None FINDINGS: LIVER: There is uniform echotexture within the visualized portions of the liver. The main portal vein is patent and with normal direction of flow. Length 14.8 cm. GALLBLADDER: Multiple shadowing gallstones are present. No abnormal gallbladder wall thickening or pericholecystic fluid. Sonographic Gonzalez sign reported as negative. COMMON BILE DUCT: Borderline at 0.6 cm. AORTA/IVC: Both appearing unremarkable. PANCREAS: Visualized portions appearing unremarkable. RIGHT KIDNEY: 9.8 x 4.2 x 4.2 cm. No hydronephrosis. OTHER: None. IMPRESSION: 1. Cholelithiasis with multiple gallstones. No definitive abnormal gallbladder wall thickening and/or pericholecystic fluid. Common bile duct is borderline dilated. Dictated by: Dictated on workstation # [id number]
== END ==
LOC: RAD 08:42
PROVIDERS: ATTEND Family Medicine
DX: K80.70 Calculus of gallbladder and bile duct without cholecystitis without obstruction (principal)
CPT/HCPCS: 76705

== ENCOUNTER 2022-06-16 05:33 | Outpatient (CLI) | payer SELFPAY ==
[~2022-06-16] VITALS: Ht 160 cm; Wt 63.0 kg
== END 2022-06-21 17:40 | disposition home or self-care (01) ==
LOC: PREOP 05:33
PROVIDERS: ATTEND Surgery
DX: Z01.818 Encounter for other preprocedural examination (principal); K80.10 Calculus of gallbladder with chronic cholecystitis without obstruction

== ENCOUNTER 2022-06-23 08:37 | Day surgery (SDC) | payer OTHER ==
[~2022-06-23] VITALS: Ht 160 cm; Wt 63.0 kg
[2022-06-23] VITALS (11 sets, daily range): BP systolic 92–102; BP diastolic 42–67
[2022-06-23] MEDS: LACTATED RINGERS 1,000 ML IV PRN ×2 (09:05→11:35)
[2022-06-23] MEDS ORDERED: ceFAZolin INJECTION 2,000 MG ONE (09:36)
[2022-06-23] MEDS ORDERED: NS (IVPB) 50 ML ONE (09:36)
[2022-06-23] MEDS ORDERED: proPOfol 200 MG/20 ML (DIPRIVAN) VIAL IV ONE (09:37)
[2022-06-23] MEDS ORDERED: LIDOCAINE PF 2% 5 ML (XYLOCAINE) VIAL ONE (09:37)
[2022-06-23] MEDS ORDERED: ONDANSETRON 4 MG/2 ML (SDV) Z0FRAN ONE ×2 (09:37→12:35)
[2022-06-23] MEDS ORDERED: MIDAZOLAM 2 MG/2 ML (VERSED) VIAL ONE (09:37)
[2022-06-23] MEDS ORDERED: fentaNYL INJ 100 MCG/2 ML AMP ONE ×2 (09:37→12:28)
[2022-06-23] MEDS ORDERED: GLYCOPYRROLATE 0.2 MG/ML (ROBINUL) 2 ML VIAL ONE (09:37)
--- NOTE | 2022-06-23 09:37 | Progress Note-Pre Operative ---
Pre-Operative Progress Note Date H&P Reviewed: Jun 23, 2022 Time H&P Reviewed: 09:37 History & Physical: H&P Reviewed, Patient Examed, No changes noted Pre-Operative Diagnosis: cholelithiasis KERI CARROLL DO Jun 23, 2022 09:37
[2022-06-23] MEDS ORDERED: ROCURONIUM 50 MG/5 ML (ZEMURON) VIAL IV ONE (09:38)
[2022-06-23] MEDS ORDERED: NEOSTIGMINE (BLOXIVERZ ) 1 MG/1ML 10 ML VIAL ONE (09:38)
[2022-06-23] MEDS ORDERED: BUP/EPI 0.5% 1:200,000 (SENSORCAINE) 30 ML VIAL ONE (09:58)
[2022-06-23] MEDS ORDERED: ceFAZolin INJECTION 2,000 MG in NS (IVPB) 50 ML IV ONE (10:00)
--- NOTE | 2022-06-23 12:04 | Progress Note-Post Operative ---
Post-Operative Progess Note Surgeon (s)/Cte Teacher (s) Surgeon KERI CARROLL DO Cte Teacher: Dr. Martinez to assist in retraction dissection and closure Pre-Operative Diagnosis cholelithiasis Post-Operative Diagnosis same Procedure & Operative Findings Date of Procedure 06/23/22 Procedure Performed/Findings PROCEDURE: Laparoscopic cholecystectomy with intraoperative cholangiogram. COMPLICATIONS: None. PROCEDURE: The patient was taken to the operating suite and was prepped and draped in sterile fashion. A surgical pause was performed. Just superior to the umbilicus, a 12 mm incision was made. Dissection was taken down to the fascia, which was then scored and grasped with a Ben and the abdomen was then entered. A 0 Vicryl suture was placed in a nadnew-wd-ksasq fashion and a Juarez trocar was placed and secured. Pneumoperitoneum was achieved. A 5mm trochar place in the subxyphoid and 2 in the right upper quadrant. The gallbladder was then grasped and elevated. Adhesions taken offo f the gallbladder with [place] and cautery. The cystic duct, and cystic artery were then dissected out. Clip was placed on the distal portion of the cystic duct which was then partially transected. An arrow catheter was inserted into the duct. The cholangiogram was then performed. No filing defects and contrast made its way into the duodenum. Slight narrowing at distal common bile duct. Catheter removed. Clips were placed on proximal portion of the cystic duct and then the duct was then transected. Clips were placed along the proximal and distal portion of the cystic artery which was then transected. Hook cautery was used to dissect the gallbladder from the gallbladder fossa achieving hemostasis. The gallbladder was placed in an Endobag and removed through the 12 mm trocar site. The abdomen was then reinspected. Copious amounts of irrigation were used to irrigate the abdomen and there were no signs of active bleeding. Hemostasis had been achieved. The 12 mm fascial defect was then closed with 0 Vicryl suture that had been placed in a [id number]-[id number] fashion. The abdomen was then desufflated, the trocars were removed. The abdomen was then washed and dried. The skin was then closed using 4-0 Monocryl in a subcuticular fashion. The abdomen was washed and dried and Skin Affix was place over incisions. Patient tolerated the procedure well without any complications and was taken to the recovery room in stable condition. Anesthesia Type general Estimated Blood Loss Estimated blood loss (mL): minimal Specimens/Packing Specimens Removed gallbladder KERI CARROLL DO Jun 23, 2022 12:04
[2022-06-23] MEDS ORDERED: ACHD5005 PO (12:05)
[2022-06-23] MEDS ORDERED: DOCU-143 PO (12:05)
--- NOTE | 2022-06-23 12:07 | Discharge Inst-Simple/Standard ---
Discharge Inst-Standard Discharge Medications New, Converted or Re-Newed RX: Transmitted to Pharmacy Patient Instructions/Follow Up Plan of Care/Instructions/FU: 2 weeks Asiya Activity as Tolerated: No Discharge Diet: Regular Diet Other Inst to Patient Follow up Appt: Make appointment for 2 weeks. Instructions: No lifting greater than 10 pounds. No strenuous activity. May shower in 24 hours, no tub bath or soaking. Use incentive spirometer at home as directed. No Smoking Skin/Wound Care: You have special glue over incision, it will fall off on it's own. Symptoms to Report: Appetite Changes, Extremity Discoloration, Numbness/Tingling, Swelling Increased, Bleeding Excessive, Eyesight Changes, Pain Increased, Urine Color Change, Constipation(Persistent), Fever over 101 degree F, Pain/Pressure in chest, Urinating Difficulty, Cough Up/Vomit Blood, Heart Beat Irreg/Pounding, Pain/Pressure in jaw, Vaginal Bleeding Increase, Cramps in feet or legs, Lightheadedness, Pain/Pressure in shoulder, Diarrhea(Persistent), Memory Changes Suddenly, Questions/Concerns, Weight gain consecutive days, Dizziness/Fainting, Nausea/Vomiting, Shortness of Breath, Weight gain over 2 pounds. If eyes or skin turn yellow notify physician. If questions or concerns contact your physician Or seek help at emergency department. KERI CARROLL DO Jun 23, 2022 12:06
[2022-06-23] MEDS ORDERED: SEVOFLURANE (ULTANE) 15 ML INHAL SOLN ONE (12:09)
--- NOTE | 2022-06-23 12:31 | Anesthesia-General Post-Op ---
General Patient Condition Mental Status/LOC: Same as Preop Cardiovascular: Satisfactory Nausea/Vomiting: Absent Respiratory: Satisfactory Pain: Controlled Complications: Absent Post Op Complications Complications None Follow Up Care/Instructions Patient Instructions None needed. Anesthesia/Patient Condition Patient Condition Patient is doing well, no complaints, stable vital signs, no apparent adverse anesthesia problems. No complications reported per nursing. YINA MAURICIO CRNA Jun 23, 2022 12:31
[2022-06-23] MEDS ORDERED: HYDROmorphone 2 MG/ML VIAL (DILAUDID) ONE (12:42)
[2022-06-23] MEDS ORDERED: ONDANSETRON 4 MG/2 ML (SDV) Z0FRAN IVP PRN (12:45)
[2022-06-23] MEDS ORDERED: fentaNYL INJ 100 MCG/2 ML AMP IVP ONE (12:45)
[2022-06-23] MEDS ORDERED: HYDROmorphone 2 MG/ML VIAL (DILAUDID) IV ONE (12:45)
--- NOTE | 2022-06-23 14:23 | Diagnostic Imaging Report ---
INDICATION: Epigastric pain. Cholelithiasis. COMPARISON: 05/25/2022 Total number of fluoroscopic images saved: 68 Total fluoroscopy time: 12 seconds FINDINGS: Multiple intraoperative image intensifier and digital subtraction views of the right upper abdominal quadrant were obtained during intraoperative cholangiogram. Images provided show contrast filling the intra and extrahepatic biliary ductal systems. No definite intraluminal filling defect is seen. Contrast empties into the small bowel. Please note, interpreting radiologist was not present during the procedure. IMPRESSION: 1. Fluoroscopic guidance provided during intraoperative cholangiogram as above. Dictated by: Dictated on workstation # [id number]
== END 2022-06-23 15:10 ==
LOC: SDC 08:37
PROVIDERS: ATTEND Surgery
DX: K80.10 Calculus of gallbladder with chronic cholecystitis without obstruction (principal); K66.0 Peritoneal adhesions (postprocedural) (postinfection)
CPT/HCPCS: 76000; 84703; 87081